=== PATIENT | male | born 1955 | race Caucasian/White ===

== ENCOUNTER 2018-02-06 08:40 | Day surgery (SDC) | payer OTHER ==
[~2018-02-06] VITALS: Ht 172.7 cm; Wt 74.8 kg
[~2018-02-06 08:40] MED LIST: CENTRUM SILVER1 EAC5 PO; FISH OIL 1,2001 EAC4 PO; GLUCOSAMINE &1 EAC1 PO; LITE COAT ASPI325 M1 PO; MEN'S 50 PLUS1 EACH PO; ZOCOR40 MG PO
[2018-02-06 09:15] VITALS: BP 111/64
[2018-02-06] MEDS ORDERED: DILAUDID4 MG PO (11:30)
[2018-02-06] MEDS ORDERED: COLACE100 MG PO (11:30)
[2018-02-06 12:19] VITALS: BP 88/56
[2018-02-06 12:36] VITALS: BP 116/66
== END 2018-02-06 12:55 | disposition home or self-care (01) ==
LOC: SDC 08:40
DX: L72.0 Epidermal cyst (principal); E78.00 Pure hypercholesterolemia, unspecified; E78.5 Hyperlipidemia, unspecified; F17.200 Nicotine dependence, unspecified, uncomplicated
CPT/HCPCS: 88304; J0690; J2250; J2405; J3010